=== PATIENT | female | born 1985 | race African-American/Black ===

== ENCOUNTER 2017-09-21 17:06 | Emergency (ER) | payer OTHER ==
[~2017-09-21] VITALS: Ht 162.6 cm; Wt 85.7 kg
[~2017-09-21 17:06] MED LIST: CEPH500T PO; CYCL10TA2 PO; METH4TAB2 PO
[2017-09-21 17:10] VITALS: BP 183/97
[2017-09-21] MEDS ORDERED: TRAM50TA PO (17:23)
--- NOTE | 2017-09-21 17:23 | PHYS DOC ---
Past Medical History Past Medical History: Hypertension Past Surgical History: Other Additional Past Surgical Histo: Fibroid removed Alcohol Use: None Drug Use: None Adult General Chief Complaint Chief Complaint: BACK PAIN OR INJURY HPI HPI Patient is a [address] of chronic back pain presents the ED complaining of lower back pain times 1 day. Describes the pain as sharp. Rates the pain as 8/10. States motrin improved her pain. States same pain as previous exacerbations of pain. Denies trauma, bowel/bladder changes, saddle anesthesia, fever, abdominal pain, nausea/vomiting, chest pain or shortness of breath. Review of Systems Review of Systems Constitutional: Denies fever or chills [] Eyes: Denies change in visual acuity, redness, or eye pain [] HENT: Denies nasal congestion or sore throat [] Respiratory: Denies cough or shortness of breath [] Cardiovascular: No additional information not addressed in HPI [] GI: Denies abdominal pain, nausea, vomiting, bloody stools or diarrhea [] : Denies dysuria or hematuria [] Musculoskeletal: Complains of back pain. Denies joint pain [] Integument: Denies rash or skin lesions [] Neurologic: Denies headache, focal weakness or sensory changes [] Endocrine: Denies polyuria or polydipsia [] All other systems were reviewed and found to be within normal limits, except as documented in this note. Allergies Allergies Allergies Coded Allergies Type Severity Reaction Last Updated Verified naproxen Allergy Intermediate Rash 03/08/16 Yes Physical Exam Physical Exam Constitutional: Well developed, well nourished, no acute distress, non-toxic appearance. [] HENT: Normocephalic, atraumatic, bilateral external ears normal, oropharynx moist, no oral exudates, nose normal. [] Eyes: PERRLA, EOMI, conjunctiva normal, no discharge. [] Neck: Normal range of motion, no tenderness, supple, no stridor. [] Cardiovascular:Heart rate regular rhythm, no murmur [] Lungs & Thorax: Bilateral breath sounds clear to auscultation [] Abdomen: Bowel sounds normal, soft, no tenderness, no masses, no pulsatile masses. [] Skin: Warm, dry, no erythema, no rash. [] Back: No tenderness, NO MIDLINE TENDERNESS. FROM. no CVA tenderness. [] Extremities: No tenderness, no cyanosis, no clubbing, ROM intact, no edema. [] Neurologic: Alert and oriented X 3, normal motor function, normal sensory function, no focal deficits noted. [] Psychologic: Affect normal, judgement normal, mood normal. [] Current Patient Data Vital Signs Vital Signs Date Time Temp Pulse Resp B/P (MAP) Pulse Ox O2 Delivery O2 Flow Rate FiO2 09/21/17 17:10 97.4 100 18 97 Room Air 97.4 EKG EKG [] Radiology/Procedures Radiology/Procedures [] Course & Med Decision Making Course & Med Decision Making Pertinent Labs and Imaging studies reviewed. (See chart for details) []No bony tenderness. No x-ray warranted. Will discharge with analgesics. Patient states same pain as chronic pain she is having the past. No focal neural deficits. Discussed follow-up with PCP later this week. Discussed reasons to return to the ED. Patient understands and agrees with plan. Dragon Disclaimer Dragon Disclaimer This electronic medical record was generated, in whole or in part, using a voice recognition dictation system. Departure Departure Impression: Primary Impression: Back pain Disposition: 01 HOME, SELF-CARE Condition: STABLE Referrals: VICTOR M RENTERIA MD (PCP) Patient Instructions: Back Pain, Adult Scripts Tramadol Hcl (TRAMADOL HCL) 50 Mg Tablet 1 TAB PO PRN Q6HRS, #12 TAB Prov: RENATE SEALS 09/21/17 RENATE SEALS Sep 21, 2017 17:23
== END 2017-09-21 17:10 | disposition home or self-care (01) ==
LOC: ER 17:06
DX: G89.29 Other chronic pain (principal); M54.5 Low back pain; I10 Essential (primary) hypertension; Z88.8 Allergy status to other drugs, medicaments and biological substances
CPT/HCPCS: 99283

== ENCOUNTER 2018-03-05 09:51 | Emergency (ER) | payer OTHER ==
[2018-03-05 10:27] LABS: URINE HCG POC HCG NEGATIVE (Negative)
[2018-03-05 12:15] LABS: BILIRUBIN,URINE NEGATIVE (NEG); CLARITY,URINE CLEAR; COLOR,URINE YELLOW; GLUCOSE,URINE NEGATIVE (NEG); NITRITE,URINE NEGATIVE (NEG); PROTEIN,URINE NEGATIVE (NEG-TRACE); UROBILINOGEN,URINE 0.2 mg/dL (0.2 mg/dL)
[2018-03-05 12:25] LABS: BACTERIA,URINE 0 /HPF (0-FEW); SQUAMOUS EPITHELIAL CELL,UR MOD /LPF
[2018-03-06 14:35] LABS: CHLAMYDIA PROBE Negative (Negative); GC PROBE Positive (Negative)
== END 2018-03-05 13:00 | disposition home or self-care (01) ==
LOC: ER 13:00
DX: N76.0 Acute vaginitis (principal); B96.89 Other specified bacterial agents as the cause of diseases classified elsewhere; K04.7 Periapical abscess without sinus; I10 Essential (primary) hypertension
CPT/HCPCS: 36415; 81001; 81025; 87086; 87491; 87591; 99284; Q0111

== ENCOUNTER 2018-04-29 18:09 | Emergency (ER) | payer OTHER ==
[2018-04-29 18:59] LABS: URINE HCG POC HCG NEGATIVE (Negative)
[2018-04-29 19:01] LABS: BILIRUBIN,URINE NEGATIVE (NEG); CLARITY,URINE CLEAR; COLOR,URINE YELLOW; GLUCOSE,URINE NEGATIVE (NEG); NITRITE,URINE NEGATIVE (NEG); PROTEIN,URINE NEGATIVE (NEG-TRACE)
[2018-04-29 19:12] LABS: BACTERIA,URINE FEW /HPF (0-FEW); SQUAMOUS EPITHELIAL CELL,UR FEW /LPF
[2018-04-29] MEDS: metroNIDAZOLE 500 MG TABLET PO (20:42)
[2018-04-29] MEDS: ONDANSETRON ODT 4 MG TAB.RAPDIS. PO (20:42)
[2018-04-29] MEDS: AZITHROMYCIN 250 MG TABLET. PO (20:42)
[2018-04-29] MEDS: cefTRIAXone IM 250 MG VIAL IM (20:42)
[2018-05-02 14:24] LABS: CHLAMYDIA PROBE Negative (Negative); GC PROBE Positive (Negative)
== END 2018-04-29 21:05 | disposition home or self-care (01) ==
LOC: ER 18:09
DX: R10.2 Pelvic and perineal pain (principal); N93.9 Abnormal uterine and vaginal bleeding, unspecified; I10 Essential (primary) hypertension; Z88.5 Allergy status to narcotic agent
CPT/HCPCS: 36415; 81001; 81025; 87491; 87591; 96372; 99284-25; J0696; Q0111; Q0144; Q0162

== ENCOUNTER 2018-10-16 15:57 | Emergency (ER) | payer OTHER ==
[~2018-10-16] VITALS: Ht 162.6 cm; Wt 78.0 kg
[~2018-10-16 15:57] MED LIST changes: +ACET325T9 PO; +METR500T PO; +NITR100C62 PO; +PENI500T PO; +TRAM50TA PO
[2018-10-16 17:20] LABS: BILIRUBIN,URINE NEGATIVE (NEG); CLARITY,URINE CLEAR; COLOR,URINE YELLOW; NITRITE,URINE NEGATIVE (NEG); PROTEIN,URINE NEGATIVE (NEG-TRACE); UROBILINOGEN,URINE 0.2 mg/dL (0.2 mg/dL)
[2018-10-16 17:30] VITALS: BP 177/109
[2018-10-16 17:30] LABS: BACTERIA,URINE MANY /HPF (0-FEW); SQUAMOUS EPITHELIAL CELL,UR MANY /LPF; TRICHOMONAS,URINE PRESENT
[2018-10-16] MEDS ORDERED: CIPR250T30 PO (18:03)
[2018-10-16] MEDS ORDERED: PHEN100T82 PO (18:03)
--- NOTE | 2018-10-16 18:03 | PHYS DOC ---
Past Medical History Past Medical History: Hypertension Past Surgical History: Other Additional Past Surgical Histo: Fibroid removed Additional Information: Denies smoking Alcohol Use: None Drug Use: None Adult General Chief Complaint Chief Complaint: pain with urination [facility] Patient is a 33 year old female who presents with complaining of lower abdominal pain during urination for the last 3 weeks as an aching pain without radiation. Patient complaining of few episode of nausea during urination without fever and chills, diarrhea and constipation, vaginal bleeding or discharge, anorexia, having new sexual partner. Review of Systems Review of Systems Constitutional: Denies fever or chills [] Eyes: Denies change in visual acuity, redness, or eye pain [] HENT: Denies nasal congestion or sore throat [] Respiratory: Denies cough or shortness of breath [] Cardiovascular: No additional information not addressed in HPI [] GI: Reports abdominal pain, nausea, denies vomiting, bloody stools or diarrhea [ ] : Reports dysuria and frequency Musculoskeletal: Denies back pain or joint pain [] Integument: Denies rash or skin lesions [] Neurologic: Denies headache, focal weakness or sensory changes [] Endocrine: Denies polyuria or polydipsia [] All other systems were reviewed and found to be within normal limits, except as documented in this note. Allergies Allergies Allergies Coded Allergies Type Severity Reaction Last Updated Verified naproxen Allergy Intermediate Rash 03/08/16 Yes Physical Exam Physical Exam Constitutional: Well developed, well nourished, no acute distress, non-toxic appearance. [] HENT: Normocephalic, atraumatic oropharynx moist, no oral exudates, nose normal. [] Eyes: PERRLA, EOMI, conjunctiva normal, no discharge. [] Neck: Normal range of motion, no tenderness, supple, no stridor. [] Cardiovascular:Heart rate regular rhythm, no murmur [] Lungs & Thorax: Bilateral breath sounds clear to auscultation [] Abdomen: Bowel sounds normal, soft, no tenderness, no masses, no pulsatile masses. [] Skin: Warm, dry, no erythema, no rash. [] Back: No tenderness, no CVA tenderness. [] Extremities: No tenderness, no cyanosis, no clubbing, ROM intact, no edema. [] Neurologic: Alert and oriented X 3, normal motor function, normal sensory function, no focal deficits noted. [] Psychologic: Affect normal, judgement normal, mood normal. [] Current Patient Data Vital Signs Vital Signs Date Time Temp Pulse Resp B/P (MAP) Pulse Ox O2 Delivery O2 Flow Rate FiO2 10/16/18 16:30 98.9 104 18 163/116 (132) 97 Room Air 98.9 Lab Values Laboratory Tests Test 10/16/18 16:10 10/16/18 16:51 Urine Collection Type Unknown Urine Color Yellow Urine Clarity Clear Urine pH 7.0 Urine Specific [place] 1.015 Urine Protein Negative mg/dL (NEG-TRACE) Urine Glucose (UA) Negative mg/dL (NEG) Urine Ketones (Stick) Negative mg/dL (NEG) Urine Blood Negative (NEG) Urine Nitrite Negative (NEG) Urine Bilirubin Negative (NEG) Urine Urobilinogen Dipstick 0.2 mg/dL (0.2 mg/dL) Urine Leukocyte Esterase Large (NEG) Urine RBC 1-2 /HPF (0-2) Urine WBC 11-20 /HPF (0-4) Urine Squamous Epithelial Cells Many /LPF Urine Bacteria Many /HPF (0-FEW) Urine Trichomonas Present POC Urine HCG, Qualitative Hcg negative (Negative) EKG EKG [] Radiology/Procedures Radiology/Procedures [] Course & Med Decision Making Course & Med Decision Making Pertinent Labs reviewed. (See chart for details) discharge: I've spoken with the patient and/or caregivers. I've explained the patient's condition, diagnosis and treatment plan based on information available to me at this time. I've answered the patient's and/or caregivers questions and addressed any concerns. The patient and/or caregivers have a good understanding the patient's diagnosis, condition and treatment plan as can be expected at this point. Vital signs have been stabilized. The patient's condition is stable for discharge from the emergency department. The patient will pursue further outpatient evaluation with her primary care provider or other designated consulting physician as outlined in the discharge instructions. Patient and/or caregivers are agreeable to this plan of care and follow-up instructions have been explained in detail. The patient and/or caregivers have received these instructions in written format and expressed understanding of these discharge instructions. The patient and her caregivers are aware that if any significant change in condition or worsening of symptoms should prompt him to immediately return to this of the closest emergency department. If an emergent department is not readily available I would encourage him to call 911. Jose L Disclaimer Jose L Disclaimer This electronic medical record was generated, in whole or in part, using a voice recognition dictation system. Departure Departure Impression: Primary Impression: Urinary tract infection Additional Impression: Dysuria Disposition: HOME, SELF-CARE (at 1800) Condition: STABLE Referrals: UNKNOWN PCP NAME (PCP) Patient Instructions: Dysuria, Urinary Tract Infection Additional Instructions: Drink plenty of liquids Follow-up with your primary care physician in 3-5 days Return to ER if not getting better Scripts Phenazopyridine Hcl (PYRIDIUM) 100 Mg Tablet 100 MG PO TID for dysuria, #10 TAB Prov: ANDRE MCKENNA MD 10/16/18 Ciprofloxacin Hcl (CIPRO) 250 Mg Tablet 1 TAB PO BID for infection, #14 TAB Prov: ANDRE MCKENNA MD 10/16/18 Problem Qualifiers ANDRE MCKENNA MD Oct 16, 2018 18:03
== END 2018-10-16 18:10 | disposition home or self-care (01) ==
LOC: ER 15:57
DX: N39.0 Urinary tract infection, site not specified (principal); I10 Essential (primary) hypertension; Z88.5 Allergy status to narcotic agent
CPT/HCPCS: 81001; 81025; 87086; 99283

== ENCOUNTER 2019-11-18 13:53 | Emergency (ER) | payer OTHER ==
[~2019-11-18] VITALS: Ht 162.6 cm; Wt 79.0 kg
[~2019-11-18 13:53] MED LIST changes: +CIPR250T30 PO; +PHEN100T82 PO
[2019-11-18 14:25] VITALS: BP 211/117
--- NOTE | 2019-11-18 15:11 | PHYS DOC ---
Past Medical History Past Medical History: Hypertension (JACQUELYN TEJADA APRN) Past Surgical History: Other Additional Past Surgical Histo: Fibroid removed (JACQUELYN TEJADA APRN) Alcohol Use: None Drug Use: None (JACQUELYN TEJAAD APRN) Adult General Chief Complaint Chief Complaint: BACK PAIN - NO INJURY HPI HPI Patient is a 34 year old female with history of hypertension presenting to the ED today complaining of 10 out of 10 low "spine pain" that began 2 days ago. Patient reports the pain is worse when she is climbing steps to get to her house. Patient denies any injury. Denies any pain radiating to bilateral lower extremities, denies any loss of bowel bladder function. Denies any numbness or tingling to bilateral lower extremities. She states she has taken ibuprofen and Tylenol with no relief. (JACQUELYN TEJADA APRN) Review of Systems Review of Systems Constitutional: Denies fever or chills [] GI: Denies abdominal pain, nausea, vomiting, bloody stools or diarrhea [] : Denies dysuria or hematuria [] Musculoskeletal: Reports low back pain, denies joint pain [] Integument: Denies rash or skin lesions [] Neurologic: Denies headache, focal weakness or sensory changes [] All other systems were reviewed and found to be within normal limits, except as documented in this note. (JACQUELYN TEJADA APRN) Allergies Allergies Allergies Coded Allergies Type Severity Reaction Last Updated Verified naproxen Allergy Intermediate Rash 03/08/16 Yes (DERRELL PÉREZ DO) Physical Exam Physical Exam Constitutional: Well developed, well nourished, no acute distress, non-toxic appearance. [] Abdomen: Bowel sounds normal, soft, no tenderness, no masses, no pulsatile masses. [] Skin: Warm, dry, no erythema, no rash. [] Back: No tenderness, no CVA tenderness. [] Extremities: No tenderness, no cyanosis, no clubbing, ROM intact, no edema. [] Neurologic: Alert and oriented X 3, normal motor function, normal sensory function, no focal deficits noted. [] Psychologic: Affect normal, judgement normal, mood normal. [] (JACQUELYN TEJADA APRN) Current Patient Data Vital Signs Vital Signs Date Time Temp Pulse Resp B/P (MAP) Pulse Ox O2 Delivery O2 Flow Rate FiO2 11/18/19 14:25 98.6 92 18 211/117 (148) 97 Room Air 98.6 (DERRELL PÉREZ DO) EKG EKG [] (JACQUELYN TEJADA APRN) Radiology/Procedures Radiology/Procedures [] (JACQUELYN TEJADA APRN) Course & Med Decision Making Course & Med Decision Making Pertinent Labs and Imaging studies reviewed. (See chart for details) This is a 34-year-old. Patient presented to the ED today with complaints of low back pain for 2 days, no cauda equina symptoms. Discharged with Medrol Dosepak and cyclobenzaprine. Follow-up with PCP in 1-2 weeks. Blood pressure was markedly high at 217/117, history of hypertension has not taken weinstein BP medicines for a long time. Given Rx for Lisinopril which she was on. F/u with PCP (JACQUELYN TEJADA APRN) Dragon Disclaimer Dragon Disclaimer This electronic medical record was generated, in whole or in part, using a voice recognition dictation system. (JACQUELYN TEJADA APRN) Departure Departure Impression: Primary Impression: Back pain Additional Impression: Hypertension Disposition: 01 HOME, SELF-CARE Condition: STABLE Referrals: MORENITA TANG (PCP) follow up with your doctor in 1-2 weeks Patient Instructions: Back Pain, Adult, [id number], Hypertension Additional Instructions: You were evaluated in the emergency room for back pain. Your blood pressure was also notably high. Please take the prescribed medications as ordered, follow up with a primary care doctor in a week. Scripts Lisinopril (LISINOPRIL) 10 Mg Tablet 1 TAB PO DAILY, #30 TAB 0 Refills Prov: JACQUELYN TEJADA APRN 11/18/19 Cyclobenzaprine Hcl (CYCLOBENZAPRINE HCL) 10 Mg Tablet 1 TAB PO TID, #30 TAB Prov: JACQUELYN TEJADA APRN 11/18/19 Methylprednisolone (MEDROL) 4 Mg Tab.ds.pk 1 PKG PO UD, #1 PKG Prov: JACQUELYN TEJADA APRN 11/18/19 Attending Signature Attending Signature I have reviewed the PA/[employer]'s note and plan of care. I was available for consultation as needed during the patient's visit in the emergency department. I agree with the clinical impression, plan, and disposition. (DERRELL PÉREZ DO) Problem Qualifiers Primary Impression: Back pain Back pain location: low back pain Chronicity: acute Back pain laterality: bilateral Sciatica presence: without sciatica Qualified Codes: M54.5 - Low back pain Additional Impression: Hypertension Hypertension type: unspecified Qualified Codes: I10 - Essential (primary) hypertension JACQUELYN TEJADA APRN Nov 18, 2019 15:11 DERRELL PÉREZ DO Nov 22, 2019 01:52
[2019-11-18] MEDS ORDERED: METH4TAB2 PO (15:16)
[2019-11-18] MEDS ORDERED: CYCL10TA2 PO (15:16)
[2019-11-18] MEDS ORDERED: LISI10TA2 PO (15:16)
== END 2019-11-18 15:25 | disposition home or self-care (01) ==
LOC: ER 13:53
DX: M54.5 Low back pain (principal); I10 Essential (primary) hypertension; Z88.5 Allergy status to narcotic agent
CPT/HCPCS: 99283